=== PATIENT | male | born 1990 | race Hispanic/Latino ===

== ENCOUNTER 2017-11-01 12:11 | Emergency (ER) | payer SELFPAY ==
[2017-11-01 12:19] VITALS: BP 144/60
[2017-11-01] MEDS ORDERED: MOTRIN PO ONE (15:44)
--- NOTE | 2017-11-01 16:43 | Emergency Department Report ---
ED Lower Extremity HPI - General Chief Complaint: Extremity Injury, Lower Stated Complaint: (R) FOOT PAIN Time Seen by Provider: 11/01/17 15:36 Source: patient, family Mode of arrival: Ambulatory Limitations: No Limitations - History of Present Illness Initial Comments: This is 26-year-old male here reported that he dropped a cement block on his right foot on Tuesday. He said he was seen at [facility] and had x-ray and was given prescription for Tylenol 3. Patient stated she wanted a second opinion. He said his boss dropped him off because she was unable to work today. He reports pain and swelling to right foot. Denies any numbness or tingling. Pain is 8 out of 10 achy and throbbing worse with weightbearing, palpation and range of motion. He states taking medication but no relief. MD Complaint: foot injury Onset/Timin -: days(s) Injury: Foot: Right (pain and swelling) Type of Injury: blunt Place: work Severity: severe Severity scale (0 -10): 8 Improves With: nothing Worsens With: weight bearing, movement, palpation Context: direct blow Associated Symptoms: snap/pop sensation, swelling, able to partially bear weight. denies: numbness, tingling Treatments Prior to Arrival: NSAIDS, other (Tylenol 3) - Related Data Previous Rx's Medication Instructions Recorded Last Taken Type HYDROcodone/ACETAMINOPHEN [Dry Run 1 each PO Q6H PRN #12 tablet 11/01/17 Unknown Rx 5-325 Tablet] Ibuprofen [Motrin] 800 mg PO Q8HR PRN #15 tablet 11/01/17 Unknown Rx Allergies Allergy/AdvReac Type Severity Reaction Status Date / Time divalproex sodium Allergy Rash Verified 11/01/17 12:17 [From Depakote] lamotrigine [From Lamictal] Allergy Rash Verified 11/01/17 12:17 oxcarbazepine Allergy Rash Verified 11/01/17 12:17 [From Trileptal] ED Review of Systems ROS: Stated complaint: (R) FOOT PAIN Other details as noted in HPI Constitutional: denies: chills, fever Respiratory: denies: cough, shortness of breath, wheezing Cardiovascular: denies: chest pain, palpitations, edema, syncope Gastrointestinal: denies: nausea, vomiting Musculoskeletal: joint swelling, arthralgia. denies: back pain Skin: denies: rash, lesions Neurological: abnormal gait. denies: headache, weakness, numbness, paresthesias , vertigo ED Past Medical Hx - Past Medical History Previous Medical History?: Yes Hx Psychiatric Treatment: Yes (ADHD, bipolar) - Surgical History Past Surgical History?: No - Family History Family history: hypertension - Social History Smoking Status: Current Every Day Smoker Substance Use Type: None - Medications Home Medications: Home Medications Medication Instructions Recorded Confirmed Last Taken Type HYDROcodone/ACETAMINOPHEN [Dry Run 1 each PO Q6H PRN #12 tablet 11/01/17 Unknown Rx 5-325 Tablet] Ibuprofen [Motrin] 800 mg PO Q8HR PRN #15 tablet 11/01/17 Unknown Rx ED Physical Exam - General Limitations: No Limitations General appearance: alert, in no apparent distress - Head Head exam: Present: atraumatic, normocephalic, normal inspection - Eye Eye exam: Present: normal appearance - Neck Neck exam: Present: normal inspection, full ROM, other (no C-spine tenderness). Absent: tenderness - Respiratory Respiratory exam: Present: normal lung sounds bilaterally. Absent: respiratory distress, chest wall tenderness - Cardiovascular Cardiovascular Exam: Present: regular rate, normal rhythm, normal heart sounds - Extremities Exam Extremities exam: Present: full ROM (patient with full range of motion to all extremities except he has limited range of motion to right foot. Pain with dorsiflexion and plantar flexion), tenderness (right foot lateral outer at the fifth metatarsal bone area), normal capillary refill, joint swelling (right foot lateral outer), other (No cce. + 2 pulses in all extremities, no neurovascular compromise except for right foot with tenderness to palpate, pain , limited range of motion and swelling). Absent: normal inspection, pedal edema , calf tenderness - Expanded Lower Extremity Exam Right Hip exam: Present: normal inspection, full ROM, pelvic stability. Absent: tenderness, swelling, abrasion, laceration, ecchymosis, deformity, crepidus, dislocation, erythema, external rotation, internal rotation, shortening Upper Leg exam: Present: full ROM, tenderness (right outer lateral hip with ecchymotic area and tender to palpate. Skin tenderness is superficial.), swelling (right thigh the lateral minimal), ecchymosis (contralateral right thigh 2 x 2 centimeter ), erythema (mild erythema right outer lateral thigh). Absent: normal inspection, abrasion, laceration, crepidus, dislocation Knee exam: Present: normal inspection, full ROM, full knee extension. Absent: tenderness, swelling, abrasion, laceration, ecchymosis, deformity, crepidus, dislocation, erythema, effusion, pain w/ pronation/supination Lower Leg exam: Present: normal inspection, full ROM. Absent: tenderness, swelling, abrasion, laceration, ecchymosis, deformity, crepidus, dislocation, erythema, palpable cord Ankle exam: Present: normal inspection, full ROM. Absent: tenderness, swelling , abrasion, laceration, ecchymosis, deformity, crepidus, dislocation, erythema Foot/Toe exam: Present: tenderness (right outer lateral, fifth metatarsal bone medial), swelling. Absent: normal inspection, full ROM (patient with pain with dorsiflexion and plantar flexion.), abrasion, ecchymosis, deformity, crepidus, dislocation, erythema, amputation, puncture wound, foreign body, calcaneal tenderness, tenderness at base of 5th metatarsal, nail avulsion, subungual hematoma Neuro vascular tendon exam: Present: no vascular compromise, significant pain with passive ROM of distal joint. Absent: pulse deficit, abnormal cap refill, motor deficit, sensory deficit, tendon deficit, extremity cold to touch, pallor , abnormal 2-point discrimination, decreased fine/light touch, foot drop, peroneal nerve deficit Gait: Positive: unable to bear weight - Back Exam Back exam: Present: normal inspection, full ROM. Absent: tenderness, CVA tenderness (R), CVA tenderness (L), muscle spasm, paraspinal tenderness, vertebral tenderness, rash noted - Neurological Exam Neurological exam: Present: alert, oriented X3, abnormal gait (due to injury to right foot. Patient cannot weight-bear right foot.), reflexes normal. Absent: motor sensory deficit - Psychiatric Psychiatric exam: Present: normal affect, normal mood - Skin Skin exam: Present: warm, dry, intact, normal color. Absent: rash ED Course Vital Signs 11/01/17 12:17 Temperature 98.1 F Pulse Rate 77 Respiratory 18 Rate Blood Pressure 144/60 O2 Sat by Pulse 97 Oximetry - Reevaluation(s) Reevaluation #1: 11/01/17 17:43 Patient received Dry Run 5/325 mg 2 tablets by mouth, Motrin 800 mg by mouth in emergency room. Please refer to procedure note for details on splinting - Orthopedic Splinting/Casting Injury #1 Side: right Lower Extremity Injury Location: foot Lower Extremity Immobilizer: post-op shoe Other Orthopedic Equipment: crutches Additional Comments: Patient has no neurovascular deficits. +2 pedal pulses ED Lower Extremity MDM - Radiology Data Radiology results: report reviewed X-ray three-view right foot dictated by radiologist and report reviewed by myself. GC detail reports below. Patient: FRANCISCO LITTLEJOHN MR#: [id number] : 1990 Acct:[id number] Age/Sex: 26 / M ADM Date: 11/01/17 Loc: ED Attending Dr: Ordering Physician: CLEOPATRA CORADO MD Date of Service: 11/01/17 Procedure(s): XR foot 3+V RT Accession Number(s): [id number] cc: CLEOPATRA CORADO MD Fluoro Time In Minutes: FINAL REPORT EXAM: XR FOOT 3+V RT HISTORY: foot injury foot wedged and twisted in hitch x 5 days ago; pain to lateral side of foot; pain when pressure applied; hx of breaking growth plates in foot at age 18 TECHNIQUE: 3 views of the right foot PRIORS: None. FINDINGS: Frontal view best demonstrates subtle transverse lucency at the base of the little toe metatarsal. Findings raise suspicious for nondisplaced fracture in this location. Other bones appear intact. No dislocation. IMPRESSION: Transverse linear lucency base of little toe metatarsal may reflect acute fracture. Correlate with location of remote prior growth plate trauma, per history Transcribed By: BAL Dictated By: CORONA VILLEGAS MD Electronically Authenticated By: CORONA VILLEGAS MD Signed Date/Time: 11/01/171740 DD/ 40 TD/TT: 11/01/171740 - Medical Decision Making This is a 26-year-old male reports that a brick fell on his right foot 4 days ago and he went to Hospital and given Tylenol 3 and he reported x-ray was done but they did not see anything. He reports that he still hurting and cannot weight-bear and is right foot. Diagnostics: X-ray right foot shows Transverse linear lucency base of little toe metatarsal may reflect acute fracture. Correlate with location of remote prior growth plate trauma. Patient's has a history of trauma to right foot, he does have tenderness to first metatarsal bone area at the base with some swelling. Assessment/plan 1: Right foot fracture-postop shoe, crutches and referral to orthopedic doctor 2: Arthralgia right foot-pain is better with Motrin 800 mg and Dry Run 5/325 mg 2 tablets and he voiced relief of pain down to 310. I discussed the patient and family x-ray report, medication, splinting, followed up with orthopedic doctor in 3 days for further evaluation and treatment of right foot fracture. Rice therapy explained and he voiced understanding. Patient stable, vital signs stable afebrile and discharged home with his family in stable condition. Pain has subsided and patient discharged home with prescription for Motrin and Dry Run and to follow up with orthopedic in 3 days. - Differential Diagnosis FX vs dislocation, contusion, musculoskeletal pain Critical care attestation.: If time is entered above; I have spent that time in minutes in the direct care of this critically ill patient, excluding procedure time. ED Disposition Clinical Impression: Arthralgia of ankle, right Foot fracture, right Qualifiers: Encounter type: initial encounter Fracture type: closed Qualified Code(s): S92.901A - Unspecified fracture of right foot, initial encounter for closed fracture Disposition: DC-01 TO HOME OR SELFCARE Is pt being admited?: No Does the pt Need Aspirin: No Condition: Stable Instructions: Arthralgia (ED), Foot Fracture in Adults (ED), RICE Therapy (ED) Additional Instructions: Please follow up with orthopedic doctor in 3 days Discharge instruction on Rice therapy Please do not drive or operate heavy machinery while taking narcotic medication causes drowsiness. Take this medication for severe pain Take Motrin for mild to moderate pain No weightbearing to right lower extremity See discharge instructions and Rice therapy Referrals: PRIMARY CARE, [Primary Care Provider] - 3-5 Days TAYLOR BONDS MD [Staff Physician] - 11/04/17 Forms: Work/School Release Form(ED)
[2017-11-01] MEDS ORDERED: NORCO 5/325 PO ONE (16:44)
--- NOTE | 2017-11-01 16:48 | Emergency Department Report ---
Blank Doc - Documentation Documentation: Patient is a 26-year-old male who had a piece of concrete dropped on his foot several days ago. Patient was seen at another hospital and was told that "nothing was broken but there was a small fracture". Patient was Dale wrap. Patient is still unable to bear weight. Patient states he feels as though they took an x-ray of his ankle instead of his foot. Patient's does have some pain and swelling to the lateral right foot. X-rays will be taken here and the patient will be reassessed and with a treatment plan will be determined.
--- NOTE | 2017-11-01 17:43 | XRay Report ---
FINAL REPORT EXAM: XR FOOT 3+V RT HISTORY: foot injury foot wedged and twisted in hitch x 5 days ago; pain to lateral side of foot; pain when pressure applied; hx of breaking growth plates in foot at age 18 TECHNIQUE: 3 views of the right foot PRIORS: None. FINDINGS: Frontal view best demonstrates subtle transverse lucency at the base of the little toe metatarsal. Findings raise suspicious for nondisplaced fracture in this location. Other bones appear intact. No dislocation. IMPRESSION: Transverse linear lucency base of little toe metatarsal may reflect acute fracture. Correlate with location of remote prior growth plate trauma, per history
== END 2017-11-01 18:13 | disposition home or self-care (01) ==
LOC: ED 12:11
DX: S92.901A Unspecified fracture of right foot, initial encounter for closed fracture (principal); F31.9 Bipolar disorder, unspecified; F90.9 Attention-deficit hyperactivity disorder, unspecified type; F17.200 Nicotine dependence, unspecified, uncomplicated; Z88.1 Allergy status to other antibiotic agents; Z88.8 Allergy status to other drugs, medicaments and biological substances; W20.8XXA Other cause of strike by thrown, projected or falling object, initial encounter; X58.XXXA Exposure to other specified factors, initial encounter; Y93.89 Activity, other specified; Y92.69 Other specified industrial and construction area as the place of occurrence of the external cause; Y99.8 Other external cause status
CPT/HCPCS: 99284